=== PATIENT | female | born 1985 | race African-American/Black ===

== ENCOUNTER 2017-04-26 15:14 | Emergency (ER) | payer OTHER ==
[~2017-04-26] VITALS: Ht 167.6 cm; Wt 77.1 kg
--- NOTE | 2017-04-26 15:20 | NUR ---
SELF PRESENTS TO ED C/O SOB, ASTHMA EXACERBATION, COUGH, CONGESTION. A/OX 4. BREATHING EVEN AND UNLABORED. VITALS STABLE. SAFETY AND COMFORT MEASURES IN PLACE. AWAITING MD ORDERS.
[2017-04-26] MEDS ORDERED: DEXAMETHASONE SOD PHOSPHATE 4 MG/ML VIAL ONE (15:58)
[2017-04-26] MEDS ORDERED: IPRATROPIUM NEB FS 0.5 MG/2.5 ML AMPUL.NEB NEB ONE (16:00)
[2017-04-26] MEDS ORDERED: DEXAMETHASONE SOD PHOSPHATE 4 MG/ML VIAL IM ONE (16:00)
[2017-04-26] MEDS ORDERED: IPRATROPIUM NEB FS 0.5 MG/2.5 ML AMPUL.NEB ONE (16:00)
[2017-04-26] MEDS ORDERED: ALBUTEROL FS 2.5 MG/3 ML VIAL.NEB CONTNEB ONE (16:00)
[2017-04-26] MEDS ORDERED: ALBUTEROL FS 2.5 MG/3 ML VIAL.NEB ONE ×2 (16:00→17:15)
[2017-04-26] MEDS ORDERED: BENZONATATE 100 MG CAPSULE PO PRN (16:00)
[2017-04-26] MEDS ORDERED: CODEINE/PROMETHAZINE HCL 5 ML UDC PO ONE (16:00)
--- NOTE | 2017-04-26 16:15 | NUR ---
PATIENT REFUSED PHENERGAN WITH CODEINE, REMAINING MEDS ADMINISTERED PER MD ORDERS.
--- NOTE | 2017-04-26 16:50 | NUR ---
DIRECTOR AIRPORT AT BEDSIDE.
[2017-04-26] MEDS ORDERED: ALBUTEROL FS 2.5 MG/0.5 ML VIAL.NEB NEB ONE (17:30)
[2017-04-26 18:07] VITALS: BP 135/84
--- NOTE | 2017-04-26 18:11 | NUR ---
Patient discharged to home in stable condition. Written and verbal after care instructions given. Patient verbalizes understanding of instruction.
== END 2017-04-26 18:10 | disposition home or self-care (01) ==
LOC: ER 15:16
DX: J45.901 Unspecified asthma with (acute) exacerbation (principal); F10.10 Alcohol abuse, uncomplicated; G43.909 Migraine, unspecified, not intractable, without status migrainosus
CPT/HCPCS: 71010; 94640 ×3; 96372; 99284; A4606; J1100; Z7610

== ENCOUNTER 2019-05-16 19:31 | Emergency (ER) | payer OTHER, MEDICAID ==
[~2019-05-16] VITALS: Ht 165.1 cm; Wt 81.6 kg
--- NOTE | 2019-05-16 19:47 | NUR ---
Note undone in EDM - 05/16/19 at 1950 by EVICTOR PT JELANI/ C/O "ASTHMA ATTACK" AND RAN OUT OF MEDS, 98% ON ROOM AIR. NO ACUTE DISTRESS NOTED. PA AT BEDSIDE. PLACED ON MONITOR AND PULSE OX.
--- NOTE | 2019-05-16 19:47 | NUR ---
PT BIBSELF/ C/O "ASTHMA ATTACK" AND RAN OUT OF MEDS, 98% ON ROOM AIR. PER PATIENT "THIS HAS BEEN HAPPENING FOR TWO WEEKS." NO ACUTE DISTRESS NOTED. PA AT BEDSIDE. PLACED ON MONITOR AND PULSE OX.
[2019-05-16] MEDS ORDERED: predniSONE 20 MG TABLET ONE (19:52)
[2019-05-16] MEDS ORDERED: predniSONE 20 MG TABLET PO ONE (20:00)
[2019-05-16] MEDS ORDERED: ALBUTEROL FS 2.5 MG/3 ML VIAL.NEB CONTNEB ONE ×2 (20:00→21:00)
[2019-05-16] MEDS ORDERED: IPRATROPIUM NEB FS 0.5 MG/2.5 ML AMPUL.NEB NEB ONE ×2 (20:00→21:00)
--- NOTE | 2019-05-16 20:05 | NUR ---
Patient is resting comfortably in bed using her phone. Easily aroused. VSS.
[2019-05-16] MEDS ORDERED: IPRATROPIUM NEB FS 0.5 MG/2.5 ML AMPUL.NEB ONE ×2 (20:19→21:05)
[2019-05-16] MEDS ORDERED: ALBUTEROL FS 2.5 MG/3 ML VIAL.NEB ONE ×2 (20:19→21:05)
--- NOTE | 2019-05-16 20:21 | NUR ---
Patient is resting comfortably in bed. Easily aroused. VSS
--- NOTE | 2019-05-16 20:21 | NUR ---
RT AT BEDSIDE
--- NOTE | 2019-05-16 20:50 | NUR ---
PT NOTED SLIGHT SOB AND WHEEZING.
--- NOTE | 2019-05-16 21:15 | NUR ---
Pt receving breathing treatment. Patient is resting comfortably in bed with eyes closed.
--- NOTE | 2019-05-16 22:44 | NUR ---
Note roxanne in EDM - 05/16/19 at 2306 by QUINCY Patient discharged to home in stable condition. Written and verbal after care instructions given. Patient verbalizes understanding of instruction and RX. PT ambulatory with a steady gait. VSS.
--- NOTE | 2019-05-16 22:44 | NUR ---
Patient discharged to home in stable condition. Written and verbal after care instructions given. Patient verbalizes understanding of instruction and RX. PT ambulatory with a steady gait. VSS. PT is able to breath comfortably. No SOB noted.
[2019-05-16 22:59] VITALS: BP 124/52
== END 2019-05-16 23:00 | disposition home or self-care (01) ==
LOC: ER 19:37
DX: J45.901 Unspecified asthma with (acute) exacerbation (principal); E03.9 Hypothyroidism, unspecified; F10.10 Alcohol abuse, uncomplicated; Y90.9 Presence of alcohol in blood, level not specified; Z76.0 Encounter for issue of repeat prescription
CPT/HCPCS: 94640 ×2; 99284; J7512